=== PATIENT | female | born 1960 ===

== ENCOUNTER 2025-01-03 00:40 | Emergency (ER) | payer BC, SELFPAY ==
[2025-01-03 00:49] VITALS: BP 111/52
[2025-01-03 00:52] VITALS: BMI 26.8
[2025-01-03 01:00] VITALS: BP 104/74
--- NOTE | 2025-01-03 01:13 | ED.GENMED ---
History of Present Illness
General
Chief Complaint: Cardiac Symptoms
Source: patient, records (ED discharge records from [facility] from earlier today. Reported vital signs within normal limits. Accu-Chek of 81. CBC, BMP performed-no results.) and spouse
Exam Limitations: none
Time Seen by Provider: 01/03/25 00:46
Nursing documentation reviewed up to this point in time: agreed with
History of Present Illness
History of Present Illness:
The patient is a 64-year-old female who reports an acute onset of severe tiredness and lightheadedness earlier today. She describes this as feeling 'weirdly tired,' despite her usual pattern of insufficient sleep. The symptoms began suddenly as she
was driving 2-1/2 hours away for a work appointment. The symptoms began suddenly and became so pronounced that she felt she might faint and had to kidney puller while driving. She experienced visual disturbances, describing seeing 'stars,' and felt her
vision narrowing as if through a tunnel. Paramedics were called, and they assessed her vitals, noting initially a blood pressure of 113/systolic and a lower recording of 96/something. The patient states she felt somewhat better upon the paramedics
arrival. She was evaluated at an ED in [place].
Blood work and an electrocardiogram were performed, showing a few premature ventricular contractions but otherwise normal results. The patient admits to having had only coffee in the morning without food, but she states this is not unusual for her.
Since returning home she has had several similar episodes of sudden profound exhaustion accompanied with palpitations, feeling her heart is beating hard and intermittently skipping beats. At 1 point they called 911 and EMS arrived at home, EKG
performed which was reportedly unremarkable, normal blood pressure. She declined transport to the ED at that time but she has continued with intermittent episodes, especially when attempting to sleep, feeling that her heart is stopping. The
patient describes waking at night, feeling as though her heart is stopping and becoming lightheaded.
The patient denies any abnormal weight loss and reports a recent weight gain of approximately six or seven pounds over the past month. She is sporadically maintained on Ozempic, last course of Ozempic this past spring. She has a smoking history
involving vapes and recently switched to a new type of nicotine delivery system.
Her only daily medication is Suboxone which she has been maintained on for several years with prior history of opioid addiction. Has remained sober for a number of years. She also uses estrogen patch intermittently for menopausal symptoms.
She has history of anxiety, previously maintained on fluoxetine.
She denies alcohol or other drug use. She denies decongestant use nor cold medications.
She is menopausal.
Past History
Past History
ED Past Medical History: Psychiatric (Anxiety/depression) and Other (Previous opiate addiction)
ED Past Surgical History: Appendectomy, and Gynecological (Hysterectomy)
Social History
Tobacco: Vaping
Alcohol: None
Drug: Former user
Personal:
Living: with family
Employment: Employed
Family History
Family History: CAD (Mother with history of CAD later in life)
Phy Exam
Physical Exam
Physical Exam:
GENERAL: 64-year-old woman appears her stated age, awake and alert, mildly to moderately anxious. Easily communicative. is accompanying.
EYE: anicteric
NECK: Supple, nontender, no meningismus, no significant adenopathy.
ENT: oral mucosa is moist. No rhinorrhea.
CARDIAC: Regular rate and rhythm at 59-60. no murmur.
LUNGS: Clear breath sounds bilaterally, no acute respiratory distress, no wheezes/rales/rhonchi
ABDOMEN: Soft, nondistended, without focal tenderness, normoactive BS.
NEUROLOGICAL: Alert and oriented x3, no focal neuro deficits.
SKIN: Warm and dry, normal color, skin intact. No rash.
MUSCULOSKELETAL: No C/C/E. peripheral pulses are full and equal b/l. No palpable tenderness.
PSYCH: Anxious, apprehensive.
Course
Orders/Labs/Results
Orders:
Orders
01/03/25 00:48
ECG [Electrocardiogram (*1)] Urgent
Reason for Study: Palpitations
EKG- Treatment ONCE
01/03/25 00:57
Cardiac Monitoring- Treatment ONCE
IV Insert/Care/Rem.- Treatment PRN
Pulse Ox/spot Check [RESP] Urgent
Quantity: 1
Special Instructions: ON ROOM AIR
01/03/25 01:04
Complete Blood Count/With Diff Urgent
Comprehensive Metabolic Panel Urgent
Magnesium Urgent
TSH Reflex To Free T4 Urgent
Troponin I Urgent
01/03/25 01:12
CR Chest - 2 Views Urgent
Comment:
Reason For Exam: palpitations, CP, near syncope
Abnormal Lab Results
01/03/25
01:04
RBC 3.93 L 10^6/uL
(4.20-5.40)
Hgb 11.3 L g/dL
(12.0-16.0)
Hct 34.1 L %
(37.0-47.0)
RDW 15.4 H %
(11.5-14.5)
Monocytes % 9.8 H %
(1.7-9.3)
Chloride 109 H mmol/L
(98-107)
Glucose 110 H mg/dl
(70-99)
AST 74 H U/L
(14-36)
ALT 75 H U/L
(0-35)
Total Protein 5.9 L g/dl
(6.3-8.2)
01/03/25 01:04
01/03/25 01:04
Vital Signs
Initial and Last Documented VS:
Initial Vital Signs
Pulse Ox
98
01/03/25 00:47
Last Documented Vital Signs
Pulse Resp BP Pulse Ox
54 18 95/54 98
01/03/25 03:30 01/03/25 03:32 01/03/25 03:00 01/03/25 03:30
MDM/Problems Addressed
Differential Diagnosis Includes:
The Differential Diagnosis includes, in no particular order and is not limited to:
1. Cardiac arrhythmias, such as premature ventricular contractions
2. Dehydration-related syncope
3. Vasovagal syncope
4. Anxiety or panic disorder
5. Orthostatic hypotension
6. Thyroid disorder
7. Anemia
8. Electrolyte imbalance
9. Side effects from recent changes in nicotine use
10. New or worsening cardiac condition
MDM/Problems Addressed:
Acute:
1. Unusual tiredness and exhaustion
2. Episodes of severe lightheadedness and near-syncope
3. Visual disturbances and palpitations
History suggestive of near syncopal episode while driving this morning.
ED visit earlier today notable for PVCs which could certainly be symptomatic PVCs in nature.
Other consideration is tacky arrhythmia versus bradycardia arrhythmia.
EKG shows sinus bradycardia at 57 otherwise unremarkable.
boxing trainer thus far shows sinus bradycardia at 58-60, no ectopy noted. According to patient's baseline heart rate is slow, in the 50s as well as blood pressure generally runs 100-115.
Will plan to check labs including troponin, thyroid function and will continue cardiac catheterization technologist.
Chronic conditions affecting care: Psychiatric illness (Prior history of anxiety/depression; prior history of opiate addiction, has been sober for a number of years.)
*Radiology
Radiology exam reviewed: preliminary read by ED provider (Chest x-ray is unremarkable. Clear lung barrera. Normal heart size.)
*Pulse Oximetry
SaO2: 99
Oxygen Mode of Delivery: Room air
Patient hypoxic: no
*EKG
Interpreted by ED Provider?: Yes
Interpretation: normal
Comparison EKG: no comparison EKG present
Rate: bradycardiac
Rhythm: sinus
Lehr: normal axis
Interval: normal interval
QRS Pattern: normal QRS
Ischemia: no ischemia
*Soil Expert Interpretation
Rate: bradycardiac
Interpretation: normal
Rhythm: sinus
*Critical Care Note
Total Time (30-74mins, 75-104mins- exclusive of procedures): Not Applicable
Update Note
Update Note:
03:40
Near 3 hours of cardiac monitoring shows continued sinus bradycardia at 58. No arrhythmia, no pauses, no tachycardia.
She continues with intermittent feeling of her heart racing and at 1 point states she fell asleep for brief time and woke up abruptly with a sense that her heart was pounding. While asleep there was no hypoxia, pulse ox has remained 97 to 98% on
room air and again no arrhythmia noted on cardiac catheterization technologist.
Labs are unremarkable save for very minimally elevated LFTs. No old LFTs to compare. Troponin is negative. TSH is normal. Magnesium and electrolytes within normal limits.
At this point unclear as to cause for patient's symptoms. She does note that symptoms seem worse at nighttime and perhaps over the past several days. We did discuss possibility of acid reflux.
Acid reflux however generally does not cause near syncope.
Recommend she avoid caffeinated beverages, stay well-hydrated on a daily basis.
Other consideration is exacerbation of anxiety but discussed with patient that anxiety is a diagnosis of exclusion.
Patient does follow with a medical appointment clerk, Dr. Vargas and recommend she touch base with her medical appointment clerk as well as her PCP.
ED Attending Note
-
Portions of this chart may have been created with voice recognition software.� Occasional wrong word or��sound alike� substitutions may have occurred due to the inherent limitations of voice recognition software.
Discharge Plan
Departure
Patient Disposition: Home (Routine Discharge)
Date of Disposition: 01/03/25
Time of Disposition: 03:41
Patient with high blood pressure during this ER visit?: No
Condition: Good
Discharge Problem:
Heart palpitations, Near syncope
Instructions: Near Fainting (DC), Palpitations - ED (DC)
Prescriptions:
No Action
bupropion HCl 100 MG tablet
100 mg PO DAILY
methylprednisolone [Medrol (Eddie)] 4 MG tablets,dose pack
4 tab PO . DIRECT Qty: 1 0RF
Referrals:
Jazmyn Vargas MD [Affiliate, Cardiology] - Call in 1-3 days for appt
Interventions
Interventions:
*Risk Screen - Suicide Last Done: 01/03/25 00:54
*General Assessment Last Done: 01/03/25 00:54
*Neglect/Abuse Screening Last Done: 01/03/25 00:54
*ED- Fall Risk Assessment Last Done: 01/03/25 00:54
*ED COVID-19 Vaccine History Last Done: 01/03/25 00:54
ED- Pulmonary Assessment Last Done: 01/03/25 00:54
ED- Cardiac Assessment Last Done: 01/03/25 00:54
Discharge Date and Time
Print Language: ZAMBIAN
[2025-01-03 01:43] LABS: Hematocrit 34.1 % (37.0-47.0); Hemoglobin 11.3 g/dL (12.0-16.0); Mean Corp Hgb Conc. 33.1 g/dL (33.0-37.0); Mean Corpuscular Volume 86.8 fL (81.0-99.0); Nucleated Red Blood Cells % 0 %; Platelet Count 202 10^3/uL (130-400); Red Cell Dist. Width 15.4 % (11.5-14.5)
[2025-01-03 02:00] VITALS: BP 95/45
[2025-01-03 02:02] LABS: ALT (SGPT) 75 U/L (0-35); AST (SGOT) 74 U/L (14-36); Albumin 3.5 g/dl (3.5-5.0); Alkaline Phosphatase 81 U/L (38-126); Blood Urea Nitrogen 15 mg/dl (7-17); Calcium 8.5 mg/dl (8.4-10.2); Carbon Dioxide 27 mmol/L (22-30); Chloride 109 mmol/L (98-107); Estimated Creatinine Clearance 84 ml/min; Glucose 110 mg/dl (70-99); Magnesium 2.0 mg/dl (1.6-2.3); Potassium 4.4 mmol/L (3.5-5.1); Sodium 138 mmol/L (135-145); Total Protein 5.9 g/dl (6.3-8.2); eGFR > 60.00
[2025-01-03 02:13] LABS: Troponin I < 0.012 ng/ml
[2025-01-03 03:00] VITALS: BP 95/54
== END 2025-01-03 03:55 | disposition home or self-care (01) ==
LOC: EMR 00:40
PROVIDERS: EMERGENCY PHYSICIAN Emergency Medicine; FAMILY PHYSICIAN Family Medicine
DX: R00.2 Palpitations (principal); R55 Syncope and collapse; R00.1 Bradycardia, unspecified; F41.9 Anxiety disorder, unspecified; F32.A Depression, unspecified; F11.20 Opioid dependence, uncomplicated; F17.290 Nicotine dependence, other tobacco product, uncomplicated; Z82.49 Family history of ischemic heart disease and other diseases of the circulatory system
CPT/HCPCS: 99284; 71046; 80053; 83735; 84443; 84484; 85025; 93005